=== PATIENT | male | born 1980 | race Caucasian/White ===

== ENCOUNTER 2017-04-04 18:41 | Emergency (ER) | payer OTHER ==
[~2017-04-04] VITALS: Ht 177.8 cm; Wt 102.3 kg
[2017-04-04] MEDS ORDERED: SERT50TA12 PO (19:06)
[2017-04-04] MEDS ORDERED: RISP3 PO (19:06)
[2017-04-04] MEDS ORDERED: RISP.5 PO (19:06)
[2017-04-04] MEDS ORDERED: VIST50 PO (19:06)
[2017-04-04] MEDS ORDERED: HYDR-4031 PO (19:06)
[2017-04-04] MEDS ORDERED: PROPARACAINE HCL 0.5% 15 ML OPHTHALMIC SOLUTION OU ONE (19:45)
[2017-04-04 20:25] VITALS: BP 129/80
== END 2017-04-04 20:28 | disposition home or self-care (01) ==
LOC: EMS 18:43
DX: H10.13 Acute atopic conjunctivitis, bilateral (principal); F17.210 Nicotine dependence, cigarettes, uncomplicated; Z88.0 Allergy status to penicillin; Z88.1 Allergy status to other antibiotic agents
CPT/HCPCS: 99283; 99406

== ENCOUNTER 2017-04-08 19:17 | Emergency (ER) | payer OTHER ==
[~2017-04-08] VITALS: Ht 177.8 cm; Wt 100.0 kg
[~2017-04-08 19:17] MED LIST: HYDR-4031 PO; RISP.5 PO; RISP3 PO; SERT50TA12 PO; VIST50 PO
[2017-04-08] MEDS ORDERED: IBUPROFEN 800 MG TABLET PO ONE (21:15)
[2017-04-08 21:38] VITALS: BP 121/78
== END 2017-04-08 21:40 | disposition home or self-care (01) ==
LOC: EMS 19:19
DX: S09.93XA Unspecified injury of face, initial encounter (principal); F17.210 Nicotine dependence, cigarettes, uncomplicated; F41.9 Anxiety disorder, unspecified; F32.9 Major depressive disorder, single episode, unspecified; Z79.899 Other long term (current) drug therapy; Z88.1 Allergy status to other antibiotic agents; Z88.2 Allergy status to sulfonamides; W18.2XXA Fall in (into) shower or empty bathtub, initial encounter; Y93.89 Activity, other specified; Y92.89 Other specified places as the place of occurrence of the external cause; Y99.8 Other external cause status
CPT/HCPCS: 99282

== ENCOUNTER 2017-05-01 18:48 | Emergency (ER) | payer OTHER ==
[~2017-05-01] VITALS: Ht 177.8 cm; Wt 102.3 kg
[2017-05-01] MEDS ORDERED: IBUPROFEN 800 MG TABLET PO ONE (20:45)
[2017-05-01 20:50] VITALS: BP 135/70
== END 2017-05-01 21:09 | disposition home or self-care (01) ==
LOC: EMS 18:50
DX: H10.9 Unspecified conjunctivitis (principal); J32.0 Chronic maxillary sinusitis; J06.9 Acute upper respiratory infection, unspecified; R05 Cough; F17.210 Nicotine dependence, cigarettes, uncomplicated; Z88.2 Allergy status to sulfonamides; Z88.0 Allergy status to penicillin
CPT/HCPCS: 99283